=== PATIENT | female | born 1950 | race Caucasian/White ===

== ENCOUNTER → 2016-10-11 | Outpatient (CLI) | payer OTHER ==
--- NOTE | 2016-10-11 16:52 | Diagnostic Imaging Report ---
INDICATION: Postmenopausal bleeding. FINDINGS: The uterus measures 8.3 x 5.2 x 5.1 cm. The endometrial stripe measures 1.2 cm in thickness. The myometrium appears normal. The endometrium is abnormally thickened with increased blood flow. Neither ovary could be located sonographically. IMPRESSION: Endometrial hyperplasia versus endometrial neoplasm. Further evaluation with an endometrial biopsy should be considered. Dictated by: Dictated on workstation # [id number]
== END ==
LOC: RAD 15:02
DX: E28.2 Polycystic ovarian syndrome (principal); E03.9 Hypothyroidism, unspecified; D68.9 Coagulation defect, unspecified; Z78.0 Asymptomatic menopausal state
CPT/HCPCS: 76830; 76856

== ENCOUNTER 2017-05-18 10:18 | Outpatient (CLI) | payer OTHER ==
[~2017-05-18] VITALS: Ht 172.7 cm; Wt 73.5 kg
[2017-05-18] MEDS ORDERED: THYR16.2 PO (10:28)
[2017-05-18] MEDS ORDERED: METF500T4 PO (10:28)
[2017-05-18 10:45] LABS: BASOPHILS % (AUTO) 1 % (0-10); EOSINOPHILS # (AUTO) 0.1 10^3/uL (0.0-0.3); EOSINOPHILS % (AUTO) 3 % (0-10); LYMPHOCYTES # (AUTO) 0.8 X 10^3 (1.0-4.0); LYMPHOCYTES % (AUTO) 15 % (12-44); MEAN CORPUSCULAR HEMOGLOBIN 33 PG (25-34); MEAN CORPUSCULAR HGB CONC 34 G/DL (32-36); MEAN CORPUSCULAR VOLUME 97 FL (80-99); MEAN PLATELET VOLUME 10.1 FL (7.4-10.4); MONOCYTES # (AUTO) 0.4 X 10^3 (0.0-1.0); MONOCYTES % (AUTO) 8 % (0-12); NEUTROPHILS # (AUTO) 3.9 X 10^3 (1.8-7.8); NEUTROPHILS % (AUTO) 74 % (42-75); PLATELET COUNT 222 10^3/uL (130-400); RED BLOOD COUNT 4.38 10^6/uL (4.35-5.85); RED CELL DISTRIBUTION WIDTH 13.2 % (10.0-14.5); WHITE BLOOD COUNT 5.3 10^3/uL (4.3-11.0)
== END 2017-05-18 10:40 | disposition home or self-care (01) ==
LOC: PREOP 10:18
PROVIDERS: ATTEND Obstetrics & Gynecology
DX: Z01.812 Encounter for preprocedural laboratory examination (principal); Z11.2 Encounter for screening for other bacterial diseases; N95.0 Postmenopausal bleeding
CPT/HCPCS: 36415; 85025; 86850; 86900; 86901; 87081

== ENCOUNTER 2017-05-24 06:00 | Day surgery (SDC) | payer OTHER ==
[~2017-05-24] VITALS: Ht 172.7 cm; Wt 73.5 kg
[~2017-05-24 06:00] MED LIST: METF500T4 PO; THYR16.2 PO
[2017-05-24 06:30] VITALS: BP 140/76
[2017-05-24] MEDS ORDERED: FAMOTIDINE 20MG/2ML IV (PEPCID) IV ONE (06:30)
[2017-05-24] MEDS ORDERED: ONDANSETRON 4 MG/2 ML (SDV) Z0FRAN IV ONE (06:30)
[2017-05-24] MEDS ORDERED: fentaNYL INJECTION 100 MCG/2 ML AMP ONE (06:40)
[2017-05-24] MEDS ORDERED: MIDAZOLAM 2 MG/2 ML (VERSED) VIAL ONE (06:41)
--- NOTE | 2017-05-24 07:16 | Progress Note-Pre Operative ---
Pre-Operative Progress Note H&P Reviewed The H&P was reviewed, patient examined and no changes noted. Date Seen by Provider: May 24, 2017 Time Seen by Provider: 07:15 Date H&P Reviewed: May 24, 2017 Time H&P Reviewed: 07:15 Pre-Operative Diagnosis: PMB, Endometrial thickening on US LISANDRA COWAN DO May 24, 2017 7:16 am
--- NOTE | 2017-05-24 07:17 | Discharge Inst-Women's Service ---
Discharge Inst-Women's Serv Depart Medication/Instructions New, Converted or Re-Newed RX: RX on Chart Consults/Follow Up Additional Follow Up: Yes Orders/Referrals Dr. Cowan in 2-3 weeks Activity Activity: Activity as Tolerated Driving Instructions: No Driving for 1 Week NO SMOKING: NO SMOKING Nothing Inside Vagina: No Douching, No [place], No Tampons Diet Discharge Diet: No Restrictions Symptoms to Report to : Bleeding Excessive, Pain Increased, Fever Over 101 Degrees F, Questions/Concerns Skin/Wound Care Bathing Instructions: Shower (x 1 week) LISANDRA COWAN DO May 24, 2017 7:17 am
[2017-05-24] MEDS ORDERED: D5 LR IV SOLUTION 1,000 ML IV SCH (07:18)
[2017-05-24] MEDS ORDERED: IBUP-1773 PO (07:18)
[2017-05-24] MEDS: LACTATED RINGERS 1,000 ML IV PRN ×2 (07:26→08:40)
[2017-05-24] MEDS ORDERED: ONDANSETRON 4 MG/2 ML (SDV) Z0FRAN IVP PRN ×2 (07:30→08:15)
[2017-05-24] MEDS ORDERED: KETOROLAC 30 MG/ML VIAL IVP ONE (07:30)
[2017-05-24] MEDS ORDERED: LIDOCAINE PF 2% 5 ML (XYLOCAINE) VIAL ONE (08:03)
[2017-05-24] MEDS ORDERED: proPOfol 200 MG/20 ML (DIPRIVAN) VIAL IV ONE (08:03)
[2017-05-24] MEDS ORDERED: LIDOCAINE JELLY 2% (XYLOCAINE) 5 ML TUBE ONE (08:03)
[2017-05-24] MEDS ORDERED: SEVOFLURANE (ULTANE) 15 ML INHAL SOLN ONE (08:03)
[2017-05-24] MEDS ORDERED: MEPERIDINE (DEMEROL) INJ 50 MG/ML IVP PRN (08:15)
[2017-05-24] MEDS ORDERED: morphine INJ 10 MG/ML 1ML (SYR OR VIAL) IVP PRN (08:15)
[2017-05-24 08:45] VITALS: BP 126/69
[2017-05-24 09:15] VITALS: BP 131/64
[2017-05-24] MEDS ORDERED: BUPIVACAINE 0.25% 30 ML (SENSORCAINE) VIAL INJ ONE (09:30)
[2017-05-24 09:45] VITALS: BP 138/73
[2017-05-24 10:10] VITALS: BP 138/73
--- NOTE | 2017-05-24 16:43 | OPERATIVE REPORT ---
DATE OF SERVICE: 05/24/2017 PREOPERATIVE DIAGNOSES: 1. A 66-year-old female with postmenopausal bleeding. 2. Thickened endometrium on ultrasound. POSTOPERATIVE DIAGNOSES: 1. A 66-year-old female with postmenopausal bleeding. 2. Thickened endometrium on ultrasound. PROCEDURE: D and C with hysteroscopy. SURGEON: Lisandra Cowan DO ANESTHESIA: LMA general. ESTIMATED BLOOD LOSS: Minimal. URINE OUTPUT: 25 mL drained at the beginning of the procedure. FLUIDS: 900 mL of lactated Ringer solution. FINDINGS: Endometrial polyp along the left endometrium, grossly normal-appearing uterine cavity otherwise, grossly normal-appearing cervix and age appropriate vaginal atrophy. SPECIMEN SENT: Endometrial curettings. INDICATIONS FOR PROCEDURE: This 66-year-old female with a consultation to me from her primary care provider for episode of postmenopausal bleeding followed by a subsequent ultrasound, which revealed thickened endometrial lining. I discussed with the patient in the office an endometrial biopsy; however, I did discuss with her how there is a failure rate with endometrial biopsy as we do not do this with direct visualization and sometimes are unable to sample the tissue that is causing the thickening on ultrasound. In the case of a polyp, this might the concern. Due to the patient's limited risk factors for endometrial carcinoma, I discussed with her proceeding with D and C and hysteroscopy for removal of what I suspected would be an endometrial polyp. Risk of the procedure was discussed with the patient in detail including risk of bleeding, infection, damage to any surrounding structures including, but not limited to bowel, bladder, ureter or kidneys, risk from uterine perforation, risk from anesthesia, even risk from blood transfusion and . After all the patient's questions were answered pertaining to the procedure, a consent was obtained in the preoperative area and the patient was taken to the operating room. OPERATIVE REPORT IN DETAIL: Once in the operating room, anesthesia was found to be adequate, placed in dorsal lithotomy position, prepped and draped in normal sterile fashion. The bladder was first drained using straight catheterization. A weighted speculum was inserted into the patient's vagina. A right angle retractor was used to visualize the cervix. It was grasped at 12 o'clock position using a single tooth tenaculum. I then performed a paracervical block at 3 and 9 o'clock positions on the cervix using 0.25% Marcaine. Care was taken to aspirate before injecting 5 mL were used at each injection site. I then gently down sounded the uterine cavity and depth was just found to be 7 cm. I then gently dilated the cervix using Hegar dilators to a maximum dilatation of approximately 4 to 5 mm at which point I introduced my hysteroscope using the BettingXpert fluid management system and normal saline as my visual medium. I am able to visualize the endometrial cavity and a substantial size polyp along the left endometrial wall. Otherwise, the cavity appears normal and there are no submucosal fibroids or cavitary defects. I then removed the hysteroscope and performed a gentle curettage using a small endometrial curette. The polyp is easily collected performing the curettage. On repeat visualization of the endometrial cavity using hysteroscope after my curetting is performed reveals removal of the polyp and a normal endometrial cavity. There is no active bleeding noted from any of my curetting that I am able to note on hysteroscopy. I then removed all instruments from the patient's vagina. The patient tolerated the procedure well and sent to recovery room in stable condition. Lap and sponge counts correct at the end of procedure. Instrument counts were correct as well. Job ID: [id number] DocumentID: [id number] Dictated Date: 05/24/2017 08:08:08 Biomechanical Engineer Date: 05/24/2017 16:42:47 Dictated By: LISANDRA COWAN DO
== END 2017-05-24 10:10 | disposition home or self-care (01) ==
LOC: SDC 06:00
PROVIDERS: ATTEND Obstetrics & Gynecology
DX: C54.1 Malignant neoplasm of endometrium (principal); N84.0 Polyp of corpus uteri; N95.0 Postmenopausal bleeding; R93.8 Abnormal findings on diagnostic imaging of other specified body structures; F17.210 Nicotine dependence, cigarettes, uncomplicated; Z79.84 Long term (current) use of oral hypoglycemic drugs
CPT/HCPCS: 86850; 86900; 86901

== ENCOUNTER → 2022-07-24 | Outpatient (CLI) | payer MEDICARE, OTHER ==
[~2022-07-24] MED LIST changes: +IBUP-1773 PO; +METF-397 PO; -METF500T4 PO
--- NOTE | 2022-07-24 12:28 | Diagnostic Imaging Report ---
INDICATION: SINUS CONGESTION, DIZZINESS. TECHNIQUE: Routine noncontrast-enhanced axial images were obtained from the skull base to the vertex. Auto Exposure Controls were utilized during the CT exam to meet ALARA standards for radiation dose reduction COMPARISON: None. FINDINGS: The ventricles and cortical sulci are age-appropriate. There is no midline shift or mass-effect. No acute intra-axial hemorrhage is seen. There are no abnormal areas of increased or decreased density to suggest acute hemorrhage or edema. No extra-axial masses or collections are present. The bony calvarium is intact. The visualized paranasal sinuses are unremarkable. The mastoid air cells are clear. IMPRESSION: No acute intracranial abnormality. No CT evidence of mass, acute infarct, or intracranial hemorrhage. Dictated by: Dictated on workstation # [id number]
--- NOTE | 2022-07-24 15:32 | Diagnostic Imaging Report ---
PROCEDURE: CT sinuses without contrast TECHNIQUE: Multiple contiguous axial images were obtained through the sinuses without the use of intravenous contrast. Coronal and sagittal reformations were then performed. Auto Exposure Controls were utilized during the CT exam to meet ALARA standards for radiation dose reduction. INDICATION: Sinus congestion, dizziness. COMPARISON: CT dated the same day. FINDINGS: The left frontal sinus is hypoplastic. The right frontal sinus is unremarkable. The frontoethmoidal recesses are clear. The ethmoid air cells are clear. The sphenoid sinuses are clear. The lamina papyracea are intact. The maxillary sinuses are clear. The mastoid air cells and middle ear cavities are clear. No temporomandibular joint dislocation. Chidi cells are identified bilaterally which result in narrowing of the bilateral ostiomeatal complexes. Very minimal leftward nasal septal deviation, particularly anteriorly. No temporomandibular joint dislocation. No acute facial fracture. Parapharyngeal fat is symmetric and well-maintained. Muscles of mastication are unremarkable. The orbits are unremarkable. No intracranial midline shift or hydrocephalus within the [id number]. IMPRESSION: No acute abnormality. In particular, the paranasal sinuses are clear. Narrowing of the bilateral ostiomeatal complexes secondary to Chidi cells. Dictated by: Dictated on workstation # [id number]
== END ==
LOC: RAD 11:15
PROVIDERS: ATTEND Nurse Practitioner Family
DX: J34.89 Other specified disorders of nose and nasal sinuses (principal); R42 Dizziness and giddiness
CPT/HCPCS: 70450; 70486

== ENCOUNTER → 2022-09-12 | Outpatient (CLI) | payer MEDICARE, OTHER | LOC: CARD 13:08 | PROVIDERS: ATTEND Internal Medicine Cardiovascular Disease | DX: I11.9 Hypertensive heart disease without heart failure (principal) | CPT/HCPCS: 93306 ==

== ENCOUNTER 2022-11-13 12:43 | Emergency (ER) | payer MEDICARE, OTHER ==
[~2022-11-13] VITALS: Ht 172.7 cm; Wt 80.0 kg
--- NOTE | 2022-11-13 13:16 | ED Cardiac General ---
History of Present Illness General Chief Complaint: Dizziness/Syncope Stated Complaint: LIGHTHEADED | DIZZY Nursing Triage Note: PT AMB TO ED BY POV WITH C/O DIZZINESS. PT REPORTS SHE HAS BEEN DEALING WITH DIZZINESS FOR 6 MONTHS AND HAS SEEN PCP AND ENT AND HAS BEEN SEEING AN IMPROVEMENT WITH BALANCE EXERCISES. PT LAYED FLAT ON THE FLOOR TO EXERCISE AND IMMEDIATELY BEGAN FEELING VERY DIZZY AND VOMITING. REPORTS SHE WAS HYPERTENSIVE THIS MORNING 180-190S SYSTOLIC. PT WAS RECENTLY STARTED ON 50 MG METOPROLOL AND HAS SEEN AN INCREASE IN BP SINCE. PT HAS FOLLOW UP WITH PCP ON SUNDAY. Source: patient Exam Limitations: no limitations History of Present Illness Date Seen by Provider: Nov 13, 2022 Time Seen by Provider: 12:53 Initial Comments 71-year-old female presents to the ER with complaints of severe dizziness around noon today. She states that she has been dealing with dizziness for the last 6 months, she has seen ENT and cardiology. They determined that it was related to a balance issue, and she has been doing balance exercises which has improved the dizziness. She states that she had not really had any dizzy episodes for the last 2 weeks due to doing balance exercises. She states that this morning her blood pressure was elevated when she checked it at home, but she felt mostly fine so she went to exercise. She reports that at noon she laid down for an exercise, this caused her to have severe dizziness and vomiting. She reports that the room was spinning when she was laying down. She states that she has been having issues with high blood pressure, her primary care provider recently increased her metoprolol from 25 mg to 50 mg. Patient states that she has still been getting high readings for her blood pressure when she checks it at home. She usually does not have any symptoms with this, but does report dizziness at times when her blood pressure is high. She reports she had some chest pressure with this dizziness. She currently reports mild dizziness, states that has improved. She denies any nausea now. Denies shortness of air or chest pain at this time. She does endorse a headache. Denies blurry vision. Blood pressure remains high, heart rate is 50. Other past medical history includes hyperlipidemia. Allergies and Home Medications Allergies Coded Allergies: No Known Drug Allergies (Unverified , 05/18/17) Patient Home Medication List Home Medication List Reviewed: Yes Diazepam (Diazepam) 2 Mg Tablet, 2 MG PO Q8H Prescribed by: Cristal Joaquin on 11/13/22 1746 Ibuprofen (Ibuprofen) 600 Mg Tablet, 600 MG PO Q6H Prescribed by: LISANDRA COWAN on 05/24/17 0718 Losartan Potassium (Losartan Potassium) 50 Mg Tablet, 50 MG PO DAILY Prescribed by: Cristal Joaquin on 11/13/22 1746 Metformin HCl (Metformin HCl) 500 Mg Tablet, 500 MG PO BID, (Reported) Entered as Reported by: THIERRY PEACOCK on 05/18/17 1028 Thyroid,Pork (Nature-Throid) 16.25 Mg Tablet, 16.25 MG PO DAILY, (Reported) Entered as Reported by: THIERRY PEACOCK on 05/18/17 1028 Review of Systems Review of Systems Constitutional: see HPI Past Gesfsqt-Vnbumz-Juweeh Hx Patient Social History Tobacco Use?: No Use of E-Cig and/or Vaping dev: No Substance use?: No Alcohol Use?: No Immunizations Up To Date Tetanus Booster (TDap): Unknown Influenza Vaccine Up-to-Date: Yes; Up-to-Date First/Initial COVID19 Vaccinat: X4 Seasonal Allergies Seasonal Allergies: Yes Past Medical History Surgery/Hospitalization HX: HTN, HIGH CHOLESTEROL Arthritis, Rheumatoid Arthritis Loss of Vision: Bilateral Hearing Impairment: Denies Physical Exam Vital Signs Vital Signs - First Documented 11/13/22 12:49 Temp 35.9 Pulse 54 Resp 18 B/P (MAP) 198/91 (126) Pulse Ox 95 O2 Delivery Room Air Capillary Refill : Less Than 3 Seconds Height, Weight, BMI Height: 5'8.00" Weight: 162lbs. 0.0oz. 73.668237as; 26.00 BMI Method: General Appearance: No Apparent Distress, WD/WN HEENT: PERRL/EOMI, TMs Normal Neck: Normal Inspection, Supple Respiratory: Lungs Clear, Normal Breath Sounds, No Accessory Muscle Use, No Respiratory Distress Cardiovascular: Bradycardia Extremity: Normal Inspection, Normal Range of Motion Neurologic/Psychiatric: Alert, Oriented x3, No Motor/Sensory Deficits, Normal Mood/Affect, reverser II-XII Norm as Tested Skin: Normal Color, Warm/Dry Progress/Results/Core Measures Results/Orders Lab Results Laboratory Tests Test 11/13/22 13:30 11/13/22 15:03 Range/Units White Blood Count 4.7 4.3-11.0 10^3/uL Red Blood Count 3.85 3.80-5.11 10^6/uL Hemoglobin 13.1 11.5-16.0 g/dL Hematocrit 37 35-52 % Mean Corpuscular Volume 97 80-99 fL Mean Corpuscular Hemoglobin 34 25-34 pg Mean Corpuscular Hemoglobin Concent 35 32-36 g/dL Red Cell Distribution Width 12.4 10.0-14.5 % Platelet Count 177 130-400 10^3/uL Mean Platelet Volume 10.5 9.0-12.2 fL Immature Granulocyte % (Auto) 0 % Neutrophils (%) (Auto) 80 H 42-75 % Lymphocytes (%) (Auto) 12 12-44 % Monocytes (%) (Auto) 7 0-12 % Eosinophils (%) (Auto) 1 0-10 % Basophils (%) (Auto) 1 0-10 % Neutrophils # (Auto) 3.7 1.8-7.8 10^3/uL Lymphocytes # (Auto) 0.5 L 1.0-4.0 10^3/uL Monocytes # (Auto) 0.3 0.0-1.0 10^3/uL Eosinophils # (Auto) 0.0 0.0-0.3 10^3/uL Basophils # (Auto) 0.0 0.0-0.1 10^3/uL Immature Granulocyte # (Auto) 0.0 0.0-0.1 10^3/uL Sodium Level 144 135-145 MMOL/L Potassium Level 3.7 3.6-5.0 MMOL/L Chloride Level 106 98-107 MMOL/L Carbon Dioxide Level 30 21-32 MMOL/L Anion Gap 8 5-14 MMOL/L Blood Urea Nitrogen 10 7-18 MG/DL Creatinine 0.79 0.60-1.30 MG/DL Estimat Glomerular Filtration Rate 81 BUN/Creatinine Ratio 13 Glucose Level 105 70-105 MG/DL Calcium Level 9.4 8.5-10.1 MG/DL Corrected Calcium 9.5 8.5-10.1 MG/DL Magnesium Level 1.9 1.6-2.4 MG/DL Total Bilirubin 0.6 0.1-1.0 MG/DL Aspartate Amino Transf (AST/SGOT) 32 5-34 U/L Alanine Aminotransferase (ALT/SGPT) 44 0-55 U/L Alkaline Phosphatase 52 40-136 U/L Troponin I < 0.028 < 0.028 <0.028 NG/ML B-Type Natriuretic Peptide 212.8 H <100.0 PG/ML Total Protein 6.3 L 6.4-8.2 GM/DL Albumin 3.9 3.2-4.5 GM/DL My Orders Orders - CRISTAL JOAQUIN APRN Ekg Tracing (11/13/22 12:54) Cbc With Automated Diff (11/13/22 13:10) Magnesium (11/13/22 13:10) Comprehensive Metabolic Panel (11/13/22 13:10) Monitor-Rhythm Ecg Trace Only (11/13/22 13:10) Ed Iv/Invasive Line Start (11/13/22 13:10) Troponin I [place] (11/13/22 13:10) Orthostatic Vital Signs (Adult (11/13/22 13:10) Ed Iv/Invasive Line Start (11/13/22 13:16) Ondansetron Injection (Zofran Injectio (11/13/22 13:45) Ns Iv 1000 Ml (Sodium Chloride 0.9%) (11/13/22 14:15) Bnp [place] (11/13/22 14:06) Hydralazine Injection (Apresoline Inject (11/13/22 14:30) Troponin I [place] (11/13/22 15:00) Meclizine Tablet (Antivert Tablet) (11/13/22 15:15) Chest 1 View, Ap/Pa Only (11/13/22 15:15) Hydralazine Injection (Apresoline Inject (11/13/22 15:30) Promethazine Injection (Phenergan Injec (11/13/22 15:30) Diazepam Injection (Valium Injection) (11/13/22 16:30) Medications Given in ED Vital Signs/I&O 11/13/22 11/13/22 11/13/22 12:49 13:32 17:59 Temp 35.9 Pulse 54 60 71 58 50 Resp 18 21 B/P (MAP) 198/91 (126) 169/88 (115) 133/73 189/85 (119) 191/88 (122) Pulse Ox 95 99 O2 Delivery Room Air Room Air Blood Pressure Mean: 126 Progress Progress Note : Progress Note Patient seen and evaluated, resting comfortably on side of bed, no acute distress. Based on exam and symptoms, dizziness is likely related to hypertension and bradycardia, work-up initiated including CBC, CMP, magnesium, troponin, EKG, orthostatic vitals. 1529 CBC grossly normal, neutrophil percentage slightly elevated 80%. CMP grossly normal. Magnesium normal 1.9. Troponin negative. BNP slightly elevated 212. Orthostatic vitals show increase in blood pressure with standing, slight decrease in heart rate with standing. Hydralazine was given for hypertension, and improved systolic blood pressure to 161, but patient reported that she still dizzy. Meclizine ordered. Blood pressure then increased again to 182 systolic. Second dose of hydralazine ordered. Repeat troponin is pending at this time as well as chest x-ray. 1535 repeat troponin negative. Chest x-ray negative for acute cardiopulmonary process. Patient vomited shortly after receiving meclizine, likely threw up meclizine. 1603 patient reports some improvements in dizziness since blood pressure has improved. She still reports dizziness, headache, neck pain. She also reports fatigue, this is likely due to Phenergan. She states that her nausea is gone. I called Dr. Lema, patient's primary care provider, waiting on a call back. 1627 patient became sick again and vomited. She states that prior to vomiting, she had extreme dizziness. Described it as the room was spinning. Will try Valium IV. I spoke with Dr. Lema, she wants to start losartan 50 mg once daily and decrease patient's metoprolol to 25 mg once daily. 1742 patient reports she is feeling a lot better. She reports that her dizziness/vertigo has improved after the Valium. Will discharge with pres cription for Valium. We will also discharge with prescription for losartan. All results discussed with patient. Discharge instructions and return precautions provided. Initial ECG Impression Date: Nov 13, 2022 Initial ECG Impression Time: 13:47 Initial ECG Rate: 50 Initial ECG Rhythm: S.Kermit Initial ECG Intervals: Normal Initial ECG Impression: Normal Initial ECG Comparisson: No Previous ECG Available Diagnostic Imaging Diagonstic Imaging: Xray Plain Films/CT/US/NM/MRI: chest Comments [facility] [place], [place] NAME: BATSHEVA RAMOS [facility] REC#: [id number] PT STATUS: REG ER : 1950 PHYSICIAN: CRISTAL JOAQUIN APRN ADMIT DATE: 11/13/22/ER Draft Date of Exam:11/13/22 CHEST 1 VIEW, AP/PA ONLY INDICATION: Chest pain COMPARISON: None FINDINGS: Single frontal view of the chest demonstrates normal heart size and pulmonary vascularity. The lungs are well aerated and clear. No large pleural effusion or pneumothorax is seen. The visualized osseous structures show no acute abnormalities. IMPRESSION: 1. No acute cardiopulmonary process. Dictated on workstation # [id number] Dict: 11/13/22 1527 Trans: 11/13/22 1528 [facility] [id number] Interpreted by: SCOTTY CELESTIN MD Electronically signed by: Departure Impression Primary Impression: Dizziness Additional Impressions: Hypertension Qualified Codes: I10 - Essential (primary) hypertension Bradycardia Vertigo Disposition: HOME, SELF-CARE Condition: Stable Departure-Patient Inst. Decision time for Depature: 17:42 Referrals: VILMA LEMA MD (PCP/Family) Primary Care Physician Patient Instructions: High Blood Pressure (DC) Add. Discharge Instructions: Decrease your metoprolol to 25 mg. Start taking losartan 50 mg once daily. Take Valium as needed for vertigo. The prescriptions for losartan and Valium are only a one-time prescription, you will need to see your primary care provider for further refills. Follow-up with your primary care provider as scheduled this Sunday. Return for worsening symptoms, or any other new or concerning symptoms. All discharge instructions reviewed with patient and/or family. Voiced u nderstanding. Scripts Losartan Potassium (Losartan Potassium) 50 Mg Tablet 50 MG PO DAILY for 30 Days, #30 TAB 0 Refills Prov: CRISTAL JOAQUIN APRN 11/13/22 Diazepam (Diazepam) 2 Mg Tablet 2 MG PO Q8H for Back Pain, #10 TAB 0 Refills Prov: CRISTAL JOAQUIN APRN 11/13/22 Copy Copies To 1: VILMA LEMA MD, BRITTANY R APRN Nov 13, 2022 13:16
[2022-11-13 13:32] VITALS: BP_SYST 169; BP_SYST 189; BP_SYST 191; BP_DIAS 85; BP_DIAS 88
[2022-11-13 13:44] LABS: BASOPHILS % (AUTO) 1 % (0-10); EOSINOPHILS % (AUTO) 1 % (0-10); HEMATOCRIT 37 % (35-52); HEMOGLOBIN 13.1 g/dL (11.5-16.0); LYMPHOCYTES # (AUTO) 0.5 10^3/uL (1.0-4.0); LYMPHOCYTES % (AUTO) 12 % (12-44); MEAN CORPUSCULAR HEMOGLOBIN 34 pg (25-34); MEAN CORPUSCULAR HGB CONC 35 g/dL (32-36); MEAN CORPUSCULAR VOLUME 97 fL (80-99); MEAN PLATELET VOLUME 10.5 fL (9.0-12.2); MONOCYTES # (AUTO) 0.3 10^3/uL (0.0-1.0); MONOCYTES % (AUTO) 7 % (0-12); NEUTROPHILS # (AUTO) 3.7 10^3/uL (1.8-7.8); NEUTROPHILS % (AUTO) 80 % (42-75); PLATELET COUNT 177 10^3/uL (130-400); WHITE BLOOD COUNT 4.7 10^3/uL (4.3-11.0)
[2022-11-13] MEDS ORDERED: ONDANSETRON 4 MG/2 ML (SDV) Z0FRAN IVP ONE (13:45)
[2022-11-13 13:57] LABS: ALBUMIN 3.9 GM/DL (3.2-4.5); CHLORIDE 106 MMOL/L (98-107); POTASSIUM 3.7 MMOL/L (3.6-5.0); SODIUM 144 MMOL/L (135-145)
[2022-11-13 13:58] LABS: CALCIUM 9.4 MG/DL (8.5-10.1)
[2022-11-13 14:00] LABS: GLUCOSE 105 MG/DL (70-105); TOTAL PROTEIN 6.3 GM/DL (6.4-8.2)
[2022-11-13 14:01] LABS: BILIRUBIN,TOTAL 0.6 MG/DL (0.1-1.0); CARBON DIOXIDE 30 MMOL/L (21-32)
[2022-11-13 14:03] LABS: ALKALINE PHOSPHATASE 52 U/L (40-136); CREATININE SERUM 0.79 MG/DL (0.60-1.30); GFR ESTIMATED 81
[2022-11-13 14:04] LABS: BUN/CREATININE RATIO 13
[2022-11-13 14:06] LABS: ALANINE AMINOTRANSFERASE 44 U/L (0-55); MAGNESIUM 1.9 MG/DL (1.6-2.4)
[2022-11-13] MEDS ORDERED: NS IV 1000 ML 1,000 ML IV SCH (14:15)
[2022-11-13] MEDS ORDERED: hydrALAZINE (APESOLINE) 20 MG/ML VIAL IV ONE ×2 (14:30→15:30)
[2022-11-13] MEDS ORDERED: MECLIZINE 25 MG (ANTIVERT) TAB PO ONE (15:15)
--- NOTE | 2022-11-13 15:29 | Diagnostic Imaging Report ---
INDICATION: Chest pain COMPARISON: None FINDINGS: Single frontal view of the chest demonstrates normal heart size and pulmonary vascularity. The lungs are well aerated and clear. No large pleural effusion or pneumothorax is seen. The visualized osseous structures show no acute abnormalities. IMPRESSION: 1. No acute cardiopulmonary process. Dictated by: Dictated on workstation # [id number]
[2022-11-13] MEDS ORDERED: PROMETHAZINE INJ 25 MG/ML (PHENERGAN) AMP IVP ONE (15:30)
[2022-11-13] MEDS ORDERED: DIAZ2TAB2 PO (17:46)
[2022-11-13] MEDS ORDERED: LOSA50TA63 PO (17:46)
[2022-11-13 17:59] VITALS: BP 133/73
== END 2022-11-13 18:09 | disposition home or self-care (01) ==
LOC: EDUNIT# 12:43 → ER 12:46
DX: I10 Essential (primary) hypertension (principal); R00.1 Bradycardia, unspecified
CPT/HCPCS: 36415; 71045; 80053; 83735; 83880; 84484; 85025; 93005; 93041